=== PATIENT | male | born 1955 | race Asian ===

== ENCOUNTER 2020-12-01 08:30 | Outpatient (CLI) | payer OTHER | END 2020-12-01 23:59 | disposition home or self-care (01) | LOC: LAB.R 08:30 | PROVIDERS: ATTEND Family Medicine | DX: U07.1 COVID-19 (principal) | CPT/HCPCS: 87275; 87276 ==

== ENCOUNTER 2020-12-06 16:19 | Outpatient (CLI) | payer OTHER | END 2020-12-06 16:20 | disposition short-term general hospital (02) | LOC: EMS 16:19 | PROVIDERS: ATTEND Surgery | DX: R41.0 Disorientation, unspecified (principal); R06.00 Dyspnea, unspecified | CPT/HCPCS: A0425; A0427 ==